=== PATIENT | male | born 1990 | race African-American/Black ===

== ENCOUNTER 2020-11-02 09:35 | Emergency (ER) | payer MEDICAID, OTHER ==
[~2020-11-02] VITALS: Ht 170.2 cm; Wt 86.0 kg
[2020-11-02 09:45] VITALS: BP 123/64
--- NOTE | 2020-11-02 10:29 | RAD ---
EXAM: XR RIGHT CLAVICLE, XR SHOULDER_RIGHT 2+ VIEWS 11/02/2020 10:21 AM CLINICAL INDICATION: Right shoulder pain after playing football one day ago COMPARISON: None TECHNIQUE: 3 views of the right shoulder. 2 views of the right clavicle FINDINGS: Right shoulder: No fracture or dislocation. The acromioclavicular and glenohumeral joints are normal. The subacromial space is maintained. Right clavicle: No fracture or dislocation. Acromioclavicular alignment and coracoclavicular interval are normal. IMPRESSION: Normal right shoulder and clavicle radiographs Electronically signed by: Amrita Paniagua MD (11/02/2020 10:26 AM) [id number]
[2020-11-02] MEDS ORDERED: CYCL5TAB PO (10:39)
[2020-11-02] MEDS ORDERED: IBUP-1007 PO (10:39)
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
== END 2020-11-02 11:15 | disposition home or self-care (01) ==
LOC: ER 09:35
DX: M25.511 Pain in right shoulder (principal); R60.0 Localized edema; W21.01XA Struck by football, initial encounter; Y93.61 Activity, american tackle football; Y92.89 Other specified places as the place of occurrence of the external cause; Y99.8 Other external cause status
CPT/HCPCS: 73000; 73030; 99284

== ENCOUNTER 2020-12-10 20:13 | Emergency (ER) | payer OTHER, MEDICAID ==
[~2020-12-10] VITALS: Ht 157.5 cm; Wt 54.0 kg
[~2020-12-10 20:13] MED LIST: CYCL5TAB PO; IBUP-1007 PO
[2020-12-10 20:54] VITALS: BP 131/89
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
[2020-12-10] MEDS ORDERED: CYCL10TA2 PO (22:29)
[2020-12-10] MEDS ORDERED: NAPR-514 PO (22:29)
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
== END 2020-12-10 22:40 | disposition home or self-care (01) ==
LOC: ER 20:13
DX: S13.9XXA Sprain of joints and ligaments of unspecified parts of neck, initial encounter (principal); M25.561 Pain in right knee; M54.5 Low back pain; R51.9 Headache, unspecified; V49.49XA Driver injured in collision with other motor vehicles in traffic accident, initial encounter; Y93.89 Activity, other specified; Y92.488 Other paved roadways as the place of occurrence of the external cause; Y99.8 Other external cause status
CPT/HCPCS: 70450; 72125; 72131; 73562; 99285-25